=== PATIENT | male | born 1990 | race Caucasian/White ===

== ENCOUNTER 2016-06-04 12:44 | Emergency (ER) | payer SELFPAY ==
[~2016-06-04] VITALS: Ht 180.3 cm; Wt 136.0 kg
[2016-06-04 12:51] VITALS: Ht 180.3 cm; Wt 136.0 kg
--- NOTE | 2016-06-04 15:08 | RADRPT ---
PROCEDURE: Scrotal ultrasound CLINICAL INDICATION: Pain TECHNIQUE: Scrotal ultrasound was performed with sagittal and transverse views. Callaway scale and co jacey imaging was performed. Images were reviewed on high resolution PACS monitors. COMPARISON: None available FINDINGS: The right testicle measures 4.5 cm in length. There is normal size and echogenicity and morphology o f the right testicle with normal blood flow. The right epididymis is normal. The left testicle measures 4.6 cm in length. There is normal size and echogenicity and morphology of the left testicle with normal blood flow. The left epididymis demonstrates a 4 mm cyst. Nonspecifi c small left scrotal hydrocele is noted. No hernia or varicocele is identified. IMPRESSION: 1. No testicular torsion or mass is identified bilaterally. 2. Left epididymis demonstrates a 4 mm cyst. 3. Nonspecific small left scrotal hydrocele is noted. RPTAT: EE .Lino Lemos MD, MD Date Time Electronically viewed and signed by .Lino Lemos MD, on 06/04/2016 15:08 .R/
[2016-06-04 15:25] LABS: BASOPHILS % 0.3 % (0.0-2.0); EOSINOPHILS # 0.3 10^3/ul (0.0-0.5); EOSINOPHILS % 2.9 % (0.0-7.0); HEMATOCRIT 45.8 % (42.0-52.0); HEMOGLOBIN 15.4 g/dl (14.0-18.0); LYMPHOCYTES # 2.8 10^3/ul (0.8-2.9); LYMPHOCYTES % 27.5 % (15.0-51.0); MEAN CORPUSCULAR HEMOGLOBIN 29.1 pg (29.0-33.0); MEAN CORPUSCULAR HGB CONC 33.7 g/dl (32.0-37.0); MEAN CORPUSCULAR VOLUME 86.4 fl (82.0-101.0); MEAN PLATELET VOLUME 7.8 fl (7.4-10.4); MONOCYTE # 0.7 10^3/ul (0.3-0.9); MONOCYTES % 6.5 % (0.0-11.0); NEUTROPHIL # 6.3 10^3/ul (1.6-7.5); NEUTROPHILS % 62.8 % (39.0-77.0); PLATELET COUNT 259 10^3/UL (140-440); RED CELL DISTRIBUTION WIDTH 13.7 % (11.5-14.5); UNCORRECTED WBC 10.1 10^3/ul (4.8-10.8); WHITE BLOOD COUNT 10.1 10^3/ul (4.8-10.8)
[2016-06-04 15:27] LABS: ADD UMIC YES; URINE BILIRUBIN (Dip) NEGATIVE (NEGATIVE); URINE BLOOD (Dip) TRACE (NEGATIVE); URINE COLOR LT. YELLOW (YELLOW); URINE GLUCOSE (Dip) NEGATIVE (NEGATIVE); URINE KETONES (Dip) NEGATIVE (NEGATIVE); URINE LEUKOCYTE ESTERASE (Dip) NEGATIVE (NEGATIVE); URINE NITRITE (Dip) NEGATIVE (NEGATIVE); URINE TOTAL PROTEIN (Dip) NEGATIVE (NEGATIVE); URINE UROBILINOGEN (Dip) 0.2 E.U./dL (0.1-1.0)
[2016-06-04 15:30] LABS: ALBUMIN 4.4 g/dl (3.3-4.9)
[2016-06-04 15:31] LABS: POTASSIUM 4.1 mmol/L (3.5-5.1)
[2016-06-04 15:33] LABS: ALBUMIN/GLOBULIN RATIO 1.22; BILIRUBIN,INDIRECT 0.3 mg/dl (0-1.1); BILIRUBIN,TOTAL 0.3 mg/dl (0.2-1.3); CALCIUM 9.5 mg/dl (8.4-10.2); CREATININE 0.73 mg/dl (0.61-1.24)
[2016-06-04 15:35] LABS: CONDITION 1
[2016-06-04 15:35] LABS: SQUAMOUS EPITHELIAL CELL,UR FEW
--- NOTE | 2016-06-04 15:37 | ERD ---
ER Documentation Chief Complaint Date/Time DATE: 06/04/16 TIME: 15:36 Chief Complaint MID ABD PAIN X 8 MONTHS HPI Patient is a 25-year-old male who presents to the ED with left abdominal pain that radiates to his back and left pelvic region 8 months. He states that he developed the pain 8 months ago it came up as a sharp pain. He states that the pain comes and goes however in the last couple months the pain has been constant. He states that he has seen a regular doctor a few months ago but states that they gave him pain medication. However he states that he still has the pain. He also complains of left testicular pain on and off for the last 2- 3 months. He denies any nausea, vomiting, diarrhea or constipation. He has normal bowel movements daily and is passing gas. He denies urinary symptoms such as dysuria, urgency. Denies abnormal penile discharge. Denies sexual activity unprotected. Denies chest pain, cough, shortness of breath or difficulty breathing. Denies headache or dizziness. He denies fever or chills. No other symptoms. ROS All systems reviewed and are negative except as per history of present illness. Medications Home Meds Active Scripts Ibuprofen* (Motrin*) 600 Mg Tab, 600 MG PO Q6, #30 TAB Prov:ARJUN LIN PA-C 06/04/16 PMhx/Soc History of Surgery: No Anesthesia Reaction: No Hx Neurological Disorder: No Hx Respiratory Disorders: No Hx Cardiac Disorders: No Hx Psychiatric Problems: No Hx Miscellaneous Medical Probl: No Hx Alcohol Use: No Hx Substance Use: No Hx Tobacco Use: No Physical Exam Vitals Physical Exam GENERAL: Well-developed, well-nourished male. Appears in no acute distress. HEAD: Normocephalic, atraumatic. LUNG: Clear to auscultation bilaterally. No rhonchi, wheezing, rales or coarse breath sounds. HEART: Regular rate and rhythm. No murmurs, rubs or gallops. ABDOMEN: No scars, ecchymosis or rashes noted. Soft, nontender, and nondistended. Positive bowel sounds in all four quadrants. No rebound tenderness , no guarding. (-) McBurneys point tenderness. No CVA tenderness. BACK: No midline tenderness. : slight swelling to left testicle. no signs of torsion. no infection or abscess. Extremities: Equal pulses bilaterally. No peripheral clubbing, cyanosis or edema. No unilateral leg swelling. NEUROLOGIC: Alert and oriented. Moving all four extremities. 5/5 strength in all extremities. Normal speech. Steady gait. SKIN: Normal color. Warm and dry. No rashes or lesions. Capillary refill < 2 seconds Results 24 hrs Laboratory Tests Test 06/04/16 14:45 06/04/16 14:50 Alanine Aminotransferase (ALT/SGPT) 32IU/L Albumin 4.4g/dl Albumin/Globulin Ratio 1.22 Alkaline Phosphatase 78IU/L Anion Gap 17 Aspartate Amino Transf (AST/SGOT) 26IU/L Basophils # 0.010^3/ul Basophils % 0.3% Blood Urea Nitrogen 11mg/dl Calcium Level 9.5mg/dl Carbon Dioxide Level 28mmol/L Chloride Level 102mmol/L Creatinine 0.73mg/dl Direct Bilirubin 0.00mg/dl Eosinophils # 0.310^3/ul Eosinophils % 2.9% Globulin 3.60g/dl Glucose Level 88mg/dl Hematocrit 45.8% Hemoglobin 15.4g/dl Indirect Bilirubin 0.3mg/dl Lipase 36U/L Lymphocytes # 2.810^3/ul Lymphocytes % 27.5% Mean Corpuscular Hemoglobin 29.1pg Mean Corpuscular Hemoglobin Concent 33.7g/dl Mean Corpuscular Volume 86.4fl Mean Platelet Volume 7.8fl Monocytes # 0.710^3/ul Monocytes % 6.5% Neutrophils # 6.310^3/ul Neutrophils % 62.8% Nucleated Red Blood Cells # 0.010^3/ul Nucleated Red Blood Cells % 0.0/100WBC Platelet Count 21248^3/UL Potassium Level 4.1mmol/L Red Blood Count 5.3010^6/ul Red Cell Distribution Width 13.7% Sodium Level 143mmol/L Total Bilirubin 0.3mg/dl Total Protein 8.0g/dl White Blood Count 10.110^3/ul Urine Bilirubin NEGATIVE Urine Clarity CLEAR Urine Color LT. YELLOW Urine Glucose NEGATIVE% Urine Hemoglobin TRACE Urine Ketones NEGATIVE Urine Leukocyte Esterase NEGATIVE Urine Microscopic RBC 2-5/HPF Urine Microscopic WBC NONE SEEN/HPF Urine Nitrite NEGATIVE Urine Specific [place] >=1.030 Urine Squamous Epithelial Cells FEW Urine Total Protein NEGATIVE Urine Urobilinogen 0.2 E.U./dL Urine pH 5.5 Procedures/MDM ER COURSE: I kept the patient and/or family informed of laboratory and diagnostic imaging results throughout the emergency room course. EKG, MONITORS, & DIAGNOSTIC IMAGING: [place] [id number] Radiology Main Line: [phone] DIAGNOSTIC IMAGING REPORT Patient: JUAN PALMER : 1990 Age: 25 Sex: M MR #: [id number] DOS: 06/04/16 [id number] Ordering MD: ARJUN LIN PA-C Location: [facility] Room/Bed: PROCEDURE: CT Abdomen and Pelvis without contrast. CLINICAL INDICATION: Left-sided pain for 1 year. TECHNIQUE: CT scan of the abdomen and pelvis without contrast was performed on a multidetector high-resolution CT scanner. The patient was scanned without intravenous contrast. Coronal and sagittal reformatted images were obtained from the axial source images. Images were reviewed on a high-resolution PACS workstation. The total exam CTDI equals 23.75 mGy and the total exam DLP equals 1726.22 mGy-cm. COMPARISON: None. FINDINGS: CT abdomen: The lung bases are clear. The heart size is normal, without pericardial thickening or effusion. The liver is normal in size and density without focal mass or intrahepatic biliary dilatation. The spleen is normal in size and homogeneous in density. The stomach is grossly unremarkable. The pancreas as visualized is normal. Stones are present within the gallbladder. There is no evidence of pericholecystic inflammatory change. The biliary tree is unremarkable and there is no evidence for biliary dilatation. The adrenal glands are symmetric and normal. The kidneys are symmetrically unremarkable as well. No renal calculus or obstructive uropathy or mass lesion is seen. 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 The aorta is of normal caliber. There is no retroperitoneal lymphadenopathy. The lida hepatis region is clear. The bowel and mesentery, as visualized, are equally unremarkable. CT pelvis: The small bowel loops situated within the pelvis are unremarkable. The pelvic organs are normal. The pelvic sidewalls and inguinal regions are clear. The sigmoid colon and rectum are unremarkable. The appendix is normal. No mass, lymphadenopathy, or free fluid is seen. No acute inflammation is seen. The surrounding osseous structures are unremarkable. No osteolytic or osteoblastic lesion is detected. IMPRESSION: 1. No abdominal or pelvic acute inflammatory process, mass, or lymphadenopathy. 2. Cholelithiasis without evidence of cholecystitis. RPTAT: JJ .Misael Marquez MD, MD Date Time Electronically viewed and signed by .Misael Marquez MD, MD on 06/04/2016 16:06 .A/ CC: ARJUN LIN PA-C [place] [id number] Radiology Main Line: [phone] DIAGNOSTIC IMAGING REPORT Patient: JUAN PALMER : 1990 Age: 25 Sex: M MR #: [id number] DOS: 06/04/16 1427 Ordering MD: ARJUN LIN PA-C Location: [facility] Room/Bed: PROCEDURE: Scrotal ultrasound CLINICAL INDICATION: Pain TECHNIQUE: Scrotal ultrasound was performed with sagittal and transverse views. Callaway scale and color imaging was performed. Images were reviewed on high resolution PACS monitors. COMPARISON: None available FINDINGS: The right testicle measures 4.5 cm in length. There is normal size and echogenicity and morphology of the right testicle with normal blood flow. The right epididymis is normal. The left testicle measures 4.6 cm in length. There is normal size and echogenicity and morphology of the left testicle with normal blood flow. The left epididymis demonstrates a 4 mm cyst. Nonspecific small left scrotal hydrocele is noted. No hernia or varicocele is identified. IMPRESSION: 1. No testicular torsion or mass is identified bilaterally. 2. Left epididymis demonstrates a 4 mm cyst. 3. Nonspecific small left scrotal hydrocele is noted. RPTAT: EE .Lino Lemos MD, MD Date Time Electronically viewed and signed by .Lino Lemos MD, MD on 06/04/2016 15: 08 .R/ CC: ARJUN LIN PAPearl LAB INTERPRETATION: CBC showed no evidence of systemic infection or severe anemia. CMP showed no evidence of electrolyte abnormalities, severe acidosis, alkalosis , renal failure, or liver disease. Lipase showed no evidence of acute pancreatitis. UA showed no evidence of acute infection or hematuria. MEDICAL DECISION MAKING: This is a 25-year-old male who presents with chronic abdominal pain and testicular swelling. Vital signs were reviewed. Patient is afebrile. Patient is not hypoxic. Patient is not toxic or ill-appearing. Temperature 97.6, blood pressure 152/76. Patient has abdominal pain of uncertain etiology Low suspicion for ACS, AAA, perforated ulcer, bowel obstruction, cholecystitis, choledocholithiasis, cholangitis, pancreatitis, hepatic abscess, appendicitis, diverticulitis, nephrolithiasis, septic stone, obstructed stone. I have low suspicion for gallbladder disease as he is afebrile, his liver enzymes are within normal limits and he does not have tenderness on exam and his scan does not show signs of choledocholithiasis or cholecystitis. Patient has hydrocele. Low suspicion for pyelonephritis, UTI, nephrolithiasis, appendicitis, testicular torsion, incarcerated or strangulated hernia. DISCHARGE: At this time, patient is stable for discharge and outpatient management with no new complaints during the ER course. Patient was sent home with ibuprofen and to follow-up with primary care provider. Patient will be discharged home with instructions to recheck for new or worsening symptoms such as fever, nausea, weakness, LOC and to follow up with primary care in the next 1-2 days. Patient was advised to return to the ER for any new or worsening symptoms. Plan was discussed and patient and/or family understands and agrees. Home instructions were given. Departure Diagnosis: Primary Impression: Hydrocele Hydrocele type: unspecified Qualified Code: N43.3 - Hydrocele, unspecified hydrocele type Additional Impression: Abdominal pain Abdominal location: lower abdomen, unspecified Qualified Code: R10.30 - Lower abdominal pain Condition: Stable ARJUN LIN PA-C Jun 04, 2016 15:36 Hydrocele Hydrocele type: unspecified Qualified Code: N43.3 - Hydrocele, unspecified hydrocele type Additional Impression: Abdominal pain Abdominal location: lower abdomen, unspecified Qualified Code: R10.30 - Lower abdominal pain Condition: ARJUN May PA-C Jun 04, 2016 15:36
--- NOTE | 2016-06-04 16:04 | RADRPT ---
PROCEDURE: CT Abdomen and Pelvis without contrast. CLINICAL INDICATION: Left-sided pain for 1 year. TECHNIQUE: CT scan of the abdomen and pelvis without contrast was performed on a multidetector hig h-resolution CT scanner. The patient was scanned without intravenous contrast. Coronal and sagittal reformatted images were obtained from the axial source images. Images were reviewed on a high-resol [employer] PACS workstation. The total exam CTDI equals 23.75 mGy and the total exam DLP equals 1726.22 m Gy-cm. COMPARISON: None. FINDINGS: CT abdomen: The lung bases are clear. The heart size is normal, without pericardial thickening or effusion. The liver is normal in size and density without focal mass or intrahepatic biliary dilatation. The spleen is normal in size and homogeneous in density. The stomach is grossly unremarkable. The panc reas as visualized is normal. Stones are present within the gallbladder. There is no evidence of p ericholecystic inflammatory change. The biliary tree is unremarkable and there is no evidence for b iliary dilatation. The adrenal glands are symmetric and normal. The kidneys are symmetrically unre markable as well. No renal calculus or obstructive uropathy or mass lesion is seen. 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 The aorta is of normal caliber. There is no retroperitoneal lymphadenopathy. The lida hepatis reg ion is clear. The bowel and mesentery, as visualized, are equally unremarkable. CT pelvis: The small bowel loops situated within the pelvis are unremarkable. The pelvic organs are normal. T he pelvic sidewalls and inguinal regions are clear. The sigmoid colon and rectum are unremarkable. The appendix is normal. No mass, lymphadenopathy, or free fluid is seen. No acute inflammation is s een. The surrounding osseous structures are unremarkable. No osteolytic or osteoblastic lesion is detec reshma. IMPRESSION: 1. No abdominal or pelvic acute inflammatory process, mass, or lymphadenopathy. 2. Cholelithiasis without evidence of cholecystitis. RPTAT: JJ .Misael Marquez MD, Date Time Electronically viewed and signed by .Misael Marquez MD, on 06/04/2016 16:06 .A/
[2016-06-04] MEDS ORDERED: IBUP-1542 PO (16:19)
== END 2016-06-04 16:58 | disposition home or self-care (01) ==
LOC: FTE 12:44
DX: N43.3 Hydrocele, unspecified (principal); R10.30 Lower abdominal pain, unspecified
CPT/HCPCS: 36415; 74176; 76870; 80053; 81001; 81003; 83690; 85025

== ENCOUNTER 2016-06-26 09:20 | Emergency (ER) | payer SELFPAY ==
[~2016-06-26 09:20] MED LIST: IBUP-1542 PO
== END 2016-06-26 10:02 | disposition left against medical advice (07) ==
LOC: E/R 09:20
DX: Z53.21 Procedure and treatment not carried out due to patient leaving prior to being seen by health care provider (principal)